=== PATIENT | male | born 1975 | race Caucasian/White ===

== ENCOUNTER 2022-11-30 22:46 | Emergency (ER) | payer MEDICAID ==
[~2022-11-30] VITALS: Ht 190.5 cm; Wt 127.7 kg
[2022-11-30 23:34] VITALS: BP 159/124
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
--- NOTE | 2022-11-30 23:47 | NUR ---
Patient eloped from facility. ER MD notified.
== END 2022-12-01 00:12 | disposition left against medical advice (07) ==
LOC: ER 22:53
DX: S80.212A Abrasion, left knee, initial encounter (principal); S80.211A Abrasion, right knee, initial encounter; F10.129 Alcohol abuse with intoxication, unspecified; Z53.21 Procedure and treatment not carried out due to patient leaving prior to being seen by health care provider; Y90.9 Presence of alcohol in blood, level not specified; X58.XXXA Exposure to other specified factors, initial encounter; Y93.89 Activity, other specified; Y92.89 Other specified places as the place of occurrence of the external cause; Y99.8 Other external cause status